=== PATIENT | female | born 1995 | race Caucasian/White ===

== ENCOUNTER 2017-06-18 16:55 | Emergency (ER) | payer OTHER, MEDICARE, MEDICAID ==
--- NOTE | 2017-06-18 18:16 | RAD ---
RIGHT FOOT THREE VIEWS: History: Injury to right foot. History of musculature dystrophy. Patient is non-ambulatory. FINDINGS: There is evidence of bony fusion of the cuneiforms as well as the cuboid and navicular. There is no e vidence of acute fracture. The metatarsals and phalanges appear intact IMPRESSION: No acute fracture identified. POS: [facility]
== END 2017-06-18 17:40 | disposition home or self-care (01) ==
LOC: NAV ERS 16:55
DX: S91.114A Laceration without foreign body of right lesser toe(s) without damage to nail, initial encounter (principal); G80.9 Cerebral palsy, unspecified; G40.909 Epilepsy, unspecified, not intractable, without status epilepticus; Z79.899 Other long term (current) drug therapy; X58.XXXA Exposure to other specified factors, initial encounter
CPT/HCPCS: 12001

== ENCOUNTER 2019-05-16 20:46 | Emergency (ER) | payer OTHER, MEDICARE, MEDICAID ==
[2019-05-16] MEDS ORDERED: predniSONE 20 MG TAB ONE (21:03)
[2019-05-16] MEDS ORDERED: diphenhydrAMINE 25 MG CAP ONE (21:03)
--- NOTE | 2019-05-16 21:48 | RAD ---
XR Chest Pa Lat STANDARD HISTORY: Possible foreign body aspiration. COMPARISON: None. FINDINGS: Heart size and mediastinum are within normal limits. The lungs are clear of infiltrates. No radiopaque foreign bodies. IMPRESSION: No active intrathoracic disease.
--- NOTE | 2019-05-16 21:49 | RAD ---
XR Neck Soft Tissue HISTORY: Possible foreign body aspiration. COMPARISON: None. FINDINGS: No radiopaque foreign bodies are identified. The epiglottis is normal. No retropharyngeal s oft tissue swelling. IMPRESSION: No definite foreign bodies.
[2019-05-16 22:49] LABS: #Monocytes 0.7 thou/uL (0.11-0.59); #Neutrophils 8.6 thou/uL (1.40-6.50); %Basophils 0.3 % (0.0-1.0); %Eosinophils 0.4 % (0.0-10.0); %Lymphocytes 17.3 % (21.0-51.0); %Monocytes 6.2 % (0.0-10.0); %Neutrophils 75.8 % (42.0-75.0); Hemoglobin 13.9 g/dL (12.0-16.0); Mean Corpuscular HGB CONC 31.6 g/dL (32.0-36.0); Mean Corpuscular Hemoglobin 29.7 pg (27.0-31.0); Mean Corpuscular Volume 93.9 fL (78.0-98.0); Mean Platelet Volume 8.8 fL (7.4-10.4); Platelet Count 234 thou/uL (130-400); Red Blood Cell (RBC) Count 4.68 mill/uL (4.20-5.40); White Blood Cell (WBC) Count 11.3 thou/uL (4.8-10.8)
[2019-05-16 23:10] LABS: ALT (SGPT) 52 U/L (8-55); AST (SGOT) 40 U/L (5-34); Albumin 4.1 g/dL (3.5-5.0); Alkaline Phosphatase 186 U/L (40-110); Anion Gap 15 mmol/L (10-20); BUN (Urea Nitrogen) 16 mg/dL (7.0-18.7); Bilirubin, Total 0.1 mg/dL (0.2-1.2); Calc. Creatinine Clearance 0 mL/min (70-130); Calcium 9.9 mg/dL (7.8-10.44); Carbon Dioxide 19 mmol/L (22-29); Chloride 108 mmol/L (98-107); Estimated GFR-MDRD Greater than 90; Globulin 4.3 g/dL (2.4-3.5); Glucose 94 mg/dL (70-105); Potassium 4.5 mmol/L (3.5-5.1); Protein, Total 8.4 g/dL (6.0-8.3); Sodium 137 mmol/L (136-145)
== END 2019-05-16 23:20 | disposition short-term general hospital (02) ==
LOC: NAV ERS 20:46
DX: R05 Cough (principal); G40.909 Epilepsy, unspecified, not intractable, without status epilepticus; Z79.899 Other long term (current) drug therapy
CPT/HCPCS: 36415; 70360; 71046; 80053; 85025; J7512; Q0163

== ENCOUNTER 2022-05-21 01:00 | Emergency (ER) | payer MEDICARE, MEDICAID ==
[2022-05-21] MEDS ORDERED: Ondansetron ODT 4 MG TAB ONE (01:56)
[2022-05-21] MEDS ORDERED: Amoxicillin/Potassium Clav 250 mg/5 ml Oral Suspension ONE (02:21)
== END 2022-05-21 02:30 | disposition home or self-care (01) ==
LOC: NAV ERS 01:00
DX: J06.9 Acute upper respiratory infection, unspecified (principal); Z20.822 Contact with and (suspected) exposure to COVID-19; E03.9 Hypothyroidism, unspecified; E78.5 Hyperlipidemia, unspecified; Z79.899 Other long term (current) drug therapy
CPT/HCPCS: 71045; 87804; Q0162; U0003; U0005

== ENCOUNTER 2024-06-16 11:15 | Emergency (ER) | payer MEDICARE, MEDICAID ==
[2024-06-16 12:44] LABS: ALT (SGPT) 89 U/L (Less than 34); AST (SGOT) 68 U/L (11-34); Albumin 3.3 g/dL (3.1-4.5); Alkaline Phosphatase 221 U/L (40-110); Anion Gap 12 mmol/L (10-20); BUN (Urea Nitrogen) 25 mg/dL (7.0-18.7); Bilirubin, Total 0.3 mg/dL (0.3-1.2); Calc. Creatinine Clearance 0 mL/min (70-130); Calcium 9.8 mg/dL (7.8-10.44); Carbon Dioxide 21 mmol/L (22-29); Chloride 108 mmol/L (98-107); Estimated GFR 120; Glucose 95 mg/dL (70-105); Potassium 4.2 mmol/L (3.5-5.1); Protein, Total 8.3 g/dL (6.0-8.3); Sodium 137 mmol/L (136-145)
[2024-06-16 12:46] LABS: Hematocrit 33.9 % (36.0-47.0); Hemoglobin 10.5 g/dL (12.0-16.0); Manual Diff?? NO; Mean Corpuscular Hemoglobin 28.3 pg (27.0-31.0); Mean Corpuscular Volume 91.4 fl (78.0-98.0); Mean Platelet Volume 6.5 fL (7.4-10.4); Platelet Count 281 10x3/uL (130-400); RBC Distribution Width 15.9 % (11.5-14.5); Red Blood Cell (RBC) Count 3.72 mill/uL (4.20-5.40)
[2024-06-16 12:48] LABS: #Eosinophils 0.2 thou/uL (0.0-0.7); #Lymphocytes 2.7 thou/uL (1.20-3.40); #Monocytes 0.6 thou/uL (0.11-0.59); #Neutrophils 2.6 thou/uL (1.40-6.50); %Basophils 0.3 % (0.0-1.0); %Lymphocytes 44.3 % (21.0-51.0); %Monocytes 9.3 % (0.0-10.0); %Neutrophils 42.9 % (42.0-75.0)
[2024-06-16] MEDS ORDERED: Lorazepam 2 MG/ML VIAL ONE ×2 (13:11→17:23)
[2024-06-16 14:23] LABS: Bilirubin Negative (Negative); Blood, Urine Trace (Negative); Clarity Clear (Clear); Glucose, Urine (Dipstick) Negative (Negative); Ketone, Urine Negative (Negative); Leukocyte Negative (Negative); Nitrite Negative (Negative); Protein, Urine (Dipstick) Trace mg/dL (Neg-Trace); Specific Gravity, Urine 1.015 (1.005-1.030); Urobilinogen 0.2 mg/dL (Less than 2)
[2024-06-16 14:30] LABS: Bacteria/HPF 2+ HPF (None Seen); CAUTI Indications for Culture Fever or rigors; RBC/HPF 21-50 HPF (0-3); Squamous Epithelial None Seen HPF (0-3); WBC/HPF 0-3 HPF (0-3)
[2024-06-16 14:32] LABS: Urine Culture Reflex No No
[2024-06-16] MEDS ORDERED: Vancomycin HCl 125 MG Capsule PO SCH (15:45)
[2024-06-16] MEDS ORDERED: levETIRAcetam 500 MG (5 mL) VIAL ONE (18:14)
[2024-06-16] MEDS ORDERED: Sodium Chloride 0.9% 100 ML ONE (18:19)
== END 2024-06-16 19:25 | disposition short-term general hospital (02) ==
LOC: NAV ERS 11:15
DX: G40.909 Epilepsy, unspecified, not intractable, without status epilepticus (principal); A04.72 Enterocolitis due to Clostridium difficile, not specified as recurrent; E03.9 Hypothyroidism, unspecified; Z79.899 Other long term (current) drug therapy
CPT/HCPCS: 51701; 70450; 71045; 80053; 80177; 81001; 83605; 85025; 87040; 87077; 87149; 87428; 93005; 96365; 96375; 96376; J1953; J2060